=== PATIENT | female | born 1980 | race Caucasian/White ===

== ENCOUNTER 2016-06-28 14:03 | Emergency (ER) | payer OTHER ==
[~2016-06-28] VITALS: Ht 172.7 cm; Wt 54.5 kg
[2016-06-28 14:07] VITALS: BP 144/99; PULSE 76; RESP 17; TEMP 97.7; O2SAT 99
[2016-06-28 15:10] VITALS: RESP 17; O2SAT 100
[2016-06-28] MEDS ORDERED: MULTTAB67 PO (15:12)
[2016-06-28] MEDS ORDERED: MOTR200T4 PO (15:12)
[2016-06-28] MEDS ORDERED: MORPHINE SULFATE 4 MG/ML INJ IV PUSH ONE (15:15)
[2016-06-28] MEDS ORDERED: ONDANSETRON HCL 4 MG/2 ML VIAL IV PUSH ONE (15:15)
--- NOTE | 2016-06-28 15:21 | PD ---
HPI Chief Complaint: Chest Pain Time Seen by Provider: 15:13 Travel History International Travel<30 days: No Contact w/Intl Traveler<30days: No Traveled to known affect area: No History of Present Illness HPI 35-year-old female that presents to the ED via have a medical for evaluation of left-sided shoulder discomfort and chest discomfort. Per patient she's had this for over 2 weeks. Per patient she that it was a muscle and significant ibuprofen with minimal relief. Per patient the pain got more severe today. Per patient she points to the left chest as well as to the shoulder as the area of most pain. Per patient doesn't get better or worse with movement. Per patient is just present. Per patient he feels like a pressure. 7 out of 10. Radiates to the left arm. Denies any numbness, weakness versus having something and sensation of her left arm. She voices family history of cardiac disease as well as breast cancer. Per patient she also noted that she had a lumpectomy on her left breast in 2014 and she has for the past couple months developed a new lump on her left breast. Per patient he used to be very small but now is clear and more tender. Per patient she doesn't know this is related. He denies any fevers chills or sweats. No recent travel. Denies any abdominal pain. Nausea or vomiting. She went to an urgent care today to get evaluated for this and did some EKG send the told her to come here. By the found some abnormalities in the EKG which from what I can tell was a RBBB. PFSH Past Medical History Musculoskeletal: Yes (SCOLIOSIS) ?: Not LMP: 06/10/2016 Ovarian Cysts: Yes Tubal Ligation: Yes Past Surgical History Other Surgery: Yes (LUMPECTOMY 2014) Social History Alcohol Use: Yes (ONCE A WEEK) Tobacco Use: Yes (1/2PPD) Substance Use: Yes (MARIJUANA OCCASIONAL) Allergies-Medications (Allergen,Severity, Reaction): Coded Allergies: Codeine (Verified Allergy, Severe, 06/28/16) Reported Meds & Prescriptions Reported Meds & Active Scripts Active Lortab (Hydrocodone-Acetaminophen) 5-325 Mg Tab 1 Tab PO Q6H PRN Diclofenac Sodium DR (Diclofenac Sodium) 75 Mg Tabdr 75 Mg PO BID PRN Reported Motrin Ib (Ibuprofen) 200 Mg Tab 500 Mg PO DAILY PRN Multiple Vitamin 1 Tab 1 Tab PO DAILY Review of Systems General / Constitutional: No: Fever, Chills, Weight Gain, Weight Loss, Other Eyes: No: Diploplia, Blurred Vision, Photophobia, Drainage, Redness, Foreign Body Sensation, Pain, Tearing, Blind Spots, Visual changes, Blindness, Other HENT: No: Headaches, Vertigo, Lightheadedness, Sore Throat, Rhinitis, Rhinorrhea, Congestion, Nosebleed, Neck Stiffness, Neck Pain, Masses, Gingival Bleeding, Dental Difficulties, Ear Discharge, Earache, Other Cardiovascular: Positive: Chest Pain or Discomfort, No: Palpitations, Irregular Rhythm, Tachycardia, Diaphoresis, Syncope, Dyspnea on exertion, Varicosities, Edema, Cyanosis, Varicosities, Phlebitis, Claudication, Other Respiratory: Positive: Shortness of Breath Gastrointestinal: No: Nausea, Vomiting, Diarrhea, Abdominal Pain, Hematemesis, Hematochezia, Constipation, Changes in Bowel Habits, Indigestion, Dysphagia, Loss of Appetite, Other Genitourinary: No: Urgency, Frequency, Dysuria, Nocturia, Hematuria, Decreased Urinary Output, Oliguria, Hesitancy, Dribbling, Incontinence, Pelvic Pain, Flank Pain, Dyspareunia, Discharge, Dysmenorrhea, Menorrhagia, Metorrhagia, Vaginal Bleeding, Other Musculoskeletal: Positive: Pain, No: Myalgias, Arthralgias, Limited ROM, Weakness, Cramping, Edema, Atrophy, Other Skin: Positive Lumps, No Rash, No Itching, No Dryness, No Hives, No Change in Pigmentation, No Change in nails, No Alopecia, No Lesions, No Breast Lumps, No Breast Tenderness, No Breast Swelling, No Other Neurologic: No: Weakness, Dizziness, Syncope, Focal Abnormalities, Coordination Problem, Tremor, Ataxia, Headache, Change in Mentation, Slurred Speech, Paresthesia, Incontinence, Seizures, Sensory Disturbance, Other Psychiatric: No: Anxiety, Depression, Suicidal Ideations, Disorder of Thought, Mood Disorder, Substance Abuse, Homicidal Ideation, Other Endocrine: No: Heat Intolerance, Cold Intolerance, Polyuria, Polydipsia, Other Hematologic/Lymphatic: No: Easy Bruising, Lymph Node Enlargement, Other Physical Exam Narrative GENERAL: SKIN: Warm and dry. HEAD: Atraumatic. Normocephalic. EYES: Pupils equal and round. No scleral icterus. No injection or drainage. ENT: No nasal bleeding or discharge. Mucous membranes pink and moist. Tongue is midline. No uvula deviation. NECK: Trachea midline. No JVD. CARDIOVASCULAR: Regular rate and rhythm. No murmurs, S3, S4. Patient doesn't really have any reproducible pain but she does have a lump on her left breast around the 5:00 region which is mobile and very tender and sore. About 2 cm in diameter. No obvious lymphadenopathy noted in this area. This examination was done with a female nurse present at all times. RESPIRATORY: No accessory muscle use. Clear to auscultation. Breath sounds equal bilaterally. GASTROINTESTINAL: Abdomen soft, non-tender, nondistended. Hepatic and splenic margins not palpable. MUSCULOSKELETAL: Extremities without clubbing, cyanosis, or edema. No obvious deformities. Full range of motion of the left hand and right upper extremities as well as the lower extremities with no pain. 2+ pulses bilaterally. Neurovascular intact. NEUROLOGICAL: Awake and alert. No obvious cranial nerve deficits. Motor grossly within normal limits. Five out of 5 muscle strength in the arms and legs. Normal speech. PSYCHIATRIC: Appropriate mood and affect; insight and judgment normal. Data Data Last Documented VS Vital Signs Date Time Temp Pulse Resp B/P Pulse Ox O2 Delivery O2 Flow Rate FiO2 06/28/16 15:10 17 100 Room Air 06/28/16 15:04 75 06/28/16 14:07 97.7 144/99 Orders Electrocardiogram (06/28/16 14:19) Complete Blood Count With Diff (06/28/16 15:04) Basic Metabolic Panel (Bmp) (06/28/16 15:04) Ckmb (Isoenzyme) Profile (06/28/16 15:04) Troponin I (06/28/16 15:04) Magnesium (Mg) (06/28/16 15:04) Thyroid Stimulating Hormone (06/28/16 15:04) Chest, Single Ap (06/28/16 15:04) Iv Access Insert/Monitor (06/28/16 15:04) Ecg Monitoring (06/28/16 15:04) Oximetry (06/28/16 15:04) Ed Urine Pregnancytest Poc (06/28/16 15:04) Us Breast Unilateral (06/28/16 ) Morphine Inj (Morphine Inj) (06/28/16 15:15) Ondansetron Inj (Zofran Inj) (06/28/16 15:15) Mandatory Outpatient Referral (06/28/16 17:48) Labs Laboratory Tests Test 06/28/16 15:25 White Blood Count 10.7 TH/MM3 Red Blood Count 4.00 MIL/MM3 Hemoglobin 13.1 GM/DL Hematocrit 38.5 % Mean Corpuscular Volume 96.3 FL Mean Corpuscular Hemoglobin 32.8 PG Mean Corpuscular Hemoglobin 34.1 % Concent Red Cell Distribution Width 13.7 % Platelet Count 210 TH/MM3 Mean Platelet Volume 10.7 FL Neutrophils (%) (Auto) 70.1 % Lymphocytes (%) (Auto) 20.2 % Monocytes (%) (Auto) 8.1 % Eosinophils (%) (Auto) 1.0 % Basophils (%) (Auto) 0.6 % Neutrophils # (Auto) 7.5 TH/MM3 Lymphocytes # (Auto) 2.2 TH/MM3 Monocytes # (Auto) 0.9 TH/MM3 Eosinophils # (Auto) 0.1 TH/MM3 Basophils # (Auto) 0.1 TH/MM3 CBC Comment DIFF FINAL Differential Comment Sodium Level 140 MEQ/L Potassium Level 3.8 MEQ/L Chloride Level 106 MEQ/L Carbon Dioxide Level 28.1 MEQ/L Anion Gap 6 MEQ/L Blood Urea Nitrogen 10 MG/DL Creatinine 0.78 MG/DL Estimat Glomerular Filtration 84 ML/MIN Rate Random Glucose 82 MG/DL Calcium Level 8.4 MG/DL Magnesium Level 2.0 MG/DL Total Creatine Kinase 56 U/L Troponin I LESS THAN 0.02 NG/ML Thyroid Stimulating Hormone 1.120 uIU/ML [address] [place] [address] Medical Decision Making Medical Screen Exam Complete: Yes Emergency Medical Condition: Yes Medical Record Reviewed: Yes Interpretation(s) CBC & BMP Diagram 06/28/16 15:25 Last Impressions Chest X-Ray 06/28/16 1504 Signed Impressions: Service Date/Time: Tuesday, June 28, 2016 15:18 - CONCLUSION: Hyperinflation otherwise negative. Jason Velazquez MD FACR US showed fluid collection Troponin and CK-MB negative. TSH within normal limits. EKG shows sinus rhythm with no sign of acute ischemia or arrhythmia. RBBB noted. Read by me and attending. Differential Diagnosis Sepsis versus lump versus cancer versus chest pain versus cardiac chest pain versus pneumonia versus costochondritis Narrative Course 35-year-old female that presents to the ED for evaluation of left-sided chest pain. Patient was properly examined and was found to have signs and symptoms consistent with a lump to the breast concerning for abscess versus cancer. Also some concern for ACS until is likely secondary to her age she does have a strong family history of cardiac disease. She does have some EKG changes which showed new RBBB. EKG performed here showed the same findings. Labs and imaging ordered. Patient was given morphine and Zofran. Labs and imaging showed negative for cardiac workup but positive for 2 cystic lesions to the left breast. I had my attending evaluated the patient and she agrees to this does not appear to be cancer or infectious but likely a cyst. Patient has a history of this in the past. I believe that the patient's symptoms are likely coming from the breast. My attending agrees. Patient will be treated for this with Lortab and diclofenac sodium. I did a mandatory referral for the breast Navigator to have her follow-up with a specialist for biopsy and removal of the assisted this continues to be an issue. Patient was agreeable with plan. See ED worsening symptoms. Ice or warm compresses as needed. Diagnosis Primary Impression: Left breast mass Additional Impression: Chest pain in adult Referrals: Edwar Chiu MD, Vijay J. MD Patient Instructions: General Instructions, Narcotic given in the ED Departure Forms: Tests/Procedures, Work Release Enter return to work date: Jul 01, 2016 Additional Instructions: Take medications as prescribed. Follow-up with PCP. See ED for any worsening symptoms. Do not drink or drive while taking pain medication. Apply ice or heat as needed for pain Med/Other Pt SpecificInfo: Prescription(s) given Scripts Hydrocodone-Acetaminophen (Lortab)5-325 Mg Tab1 Tab PO Q6H PRN (PAIN) #20 TAB Prov:Ricardo Tejeda MD 06/28/[address] 75 Mg Tabdr75 Mg PO BID PRN (PAIN SCALE 1 TO 10) #20 TAB Prov:Ricardo Tejeda MD 06/28/16 Disposition: 01 DISCHARGE HOME Condition: Stable Sin Davila Jun 28, 2016 15:21
--- NOTE | 2016-06-28 15:32 | RADRPT ---
EXAM DATE/TIME: 06/28/2016 15:18 [facility] COMPARISON: No previous studies available for comparison. INDICATIONS : Chest pain. MEDICAL HISTORY : None. SURGICAL HISTORY : None. ENCOUNTER: Initial ACUITY: 2 weeks PAIN SCORE: 7/10 LOCATION: Bilateral chest FINDINGS: The lungs are markedly hyperinflated but clear. Heart and pulmonary vascularity are normal. Portion s of the bony skeleton visualized are unremarkable. CONCLUSION: Hyperinflation otherwise negative. Jason Velazquez MD FACR on June 28, 2016 at 15:29 Board Certified Radiologist. This report was verified electronically.
[2016-06-28 15:50] LABS: AUTOMATED NEUTROPHIL # 7.5 TH/MM3 (1.8-7.7); BASOPHIL # 0.1 TH/MM3 (0-0.2); BASOPHIL % 0.6 % (0.0-2.0); EOSINOPHIL # 0.1 TH/MM3 (0-0.4); HEMATOCRIT 38.5 % (35.0-46.0); HEMO FLAGS DIFF FINAL; LYMPH % 20.2 % (9.0-44.0); LYMPHOCYTE # 2.2 TH/MM3 (1.0-4.8); MEAN CELL VOLUME 96.3 FL (80.0-100.0); MEAN CORPUSCULAR HEMOGLOBIN 32.8 PG (27.0-34.0); MEAN CORPUSCULAR HGB CONC 34.1 % (32.0-36.0); MONO % 8.1 % (0.0-8.0); NEUT % 70.1 % (16.0-70.0); PLATELET COUNT 210 TH/MM3 (150-450); RED CELL DISTRIBUTION WIDTH 13.7 % (11.6-17.2); WHITE BLOOD COUNT 10.7 TH/MM3 (4.0-11.0)
[2016-06-28 16:25] LABS: ANION GAP 6 MEQ/L (5-15); BICARBONATE 28.1 MEQ/L (21.0-32.0); BLOOD UREA NITROGEN 10 MG/DL (7-18); CHLORIDE 106 MEQ/L (98-107); GLOMERULAR FILTRATION RATE 84 ML/MIN (>89); POTASSIUM 3.8 MEQ/L (3.5-5.1); SODIUM (NA) 140 MEQ/L (136-145)
[2016-06-28 16:46] VITALS: RESP 16
[2016-06-28 16:46] LABS: CREATINE KINASE 56 U/L (26-192)
--- NOTE | 2016-06-28 17:41 | RADRPT ---
EXAM DATE/TIME: 06/28/2016 16:02 [facility] COMPARISON: No previous studies available for comparison. INDICATIONS : Left breast abscess. MEDICAL HISTORY : Ovarian cysts. Scoliosis. Left breast pain. SURGICAL HISTORY : Tubal ligation. Lumpectomy. ENCOUNTER: Initial ACUITY: 1 month PAIN SCORE: 6/10 LOCATION: Left breast. FINDINGS: There are two fluid collections in the left breast. There is a 1.5 cm collection that i s in the 4 o'clock position 6 cm from the nipple. A second smaller 7 mm fluid collection is present at 5 o'clock, again 6 cm from the nipple. It appear ed to touch and it probably bilobed. There is no debris evident. Correlation is suggested. This is a directed exam only to the area of breast in question. CONCLUSION: Fluid collections as described above. Jason Velazquez MD FACR on June 28, 2016 at 17:32 Board Certified Radiologist. This report was verified electronically.
[2016-06-28] MEDS ORDERED: HYDR-3533 PO (17:47)
[2016-06-28] MEDS ORDERED: DICL75TA PO (17:47)
--- NOTE | 2016-07-05 13:02 | EKG ---
Date Performed: 06/28/2016 Time Performed: 14:48:39 PTAGE: 35 years EKG: Sinus rhythm POSSIBLE LEFT ATRIAL ENLARGEMENT INCOMPLETE RIGHT BUNDLE BRANCH BLOCK BORDERLINE ECG NO PREVIOUS TRACING DOCTOR: Chip Finch Interpretating Date/Time 07/05/2016 13:01:48
== END 2016-06-28 18:49 | disposition home or self-care (01) ==
LOC: NEPE 14:03
DX: N63 Unspecified lump in breast (principal); R07.89 Other chest pain; I45.10 Unspecified right bundle-branch block; R94.31 Abnormal electrocardiogram [ECG] [EKG]; F17.200 Nicotine dependence, unspecified, uncomplicated; Z87.39 Personal history of other diseases of the musculoskeletal system and connective tissue; Z87.42 Personal history of other diseases of the female genital tract
CPT/HCPCS: 71010; 76642; 80048; 82550; 83735; 84443; 84484; 85025; 93005; 96374; 96375; 99285; J2270; J2405